=== PATIENT | male | born 1980 | race Caucasian/White ===

== ENCOUNTER 2021-04-12 07:32 | Emergency (ER) | payer SELFPAY ==
[2021-04-12] MEDS ORDERED: DEXAMETHASONE 10 MG/ML VIAL PO STA (08:11)
[2021-04-12] MEDS ORDERED: KETOROLAC 60 MG/2 ML VIAL IM STA (08:11)
[2021-04-12] MEDS ORDERED: CHERRY SYRUP 10 ML UDC PO ONE (08:11)
--- NOTE | 2021-04-12 08:14 | ED Physician Documentation ---
PD HPI BACK PAIN - Stated complaint Stated Complaint: BACK PX - Chief complaint Chief Complaint: Back Pain - History obtained from History obtained from: Patient - History of Present Illness Timing - onset: How many days ago (2) Timing - duration: Days (2) Timing - details: Abrupt onset, Still present Location: Lower Quality: Pain, Spasm, Sharp, Similar to prior episodes Associated symptoms: Fever. No: Weakness, Numbness, Incontinent of urine, Unable to urinate, Hematuria, Incontinent of stool Improves with: Rest Worsened by: Movement, Lifting, Twisting, Palpation Contributing factors: Other (working on car bent over and had sudden onset of pain) Similar symptoms before: No diagnosis Recently seen: Not recently seen - Additional information Additional information: Previously well 40-year-old [place] car 2 days ago he bent over in an odd position and had sudden severe pain in his lower back midline. He has had similar symptoms previously remembers it only lasting several days. He thinks this was maybe 2 years ago. He has not been ill recently and has no other specific medical conditions. He has not tried any medications for this has not tried any Tylenol or Advil. Review of Systems Constitutional: denies: Fever Eyes: denies: Decreased vision Ears: denies: Ear pain Nose: denies: Rhinorrhea / runny nose, Congestion Throat: denies: Sore throat Cardiac: denies: Chest pain / pressure Respiratory: denies: Dyspnea, Cough GI: denies: Abdominal Pain, Nausea, Constipation, Diarrhea : denies: Dysuria, Frequency Skin: denies: Rash Musculoskeletal: reports: Back pain. denies: Neck pain, Extremity pain Neurologic: denies: Generalized weakness, Focal weakness, Numbness, Difficulty speaking PD PAST MEDICAL HISTORY - Past Medical History Past Medical History: Yes Cardiovascular: None Respiratory: None Neuro: Headaches Endocrine/Autoimmune: None GI: None : None HEENT: None Psych: None Musculoskeletal: None Derm: None - Past Surgical History Past Surgical History: No - Present Medications Home Medications: Ambulatory Orders Medication Instructions Recorded Confirmed Cyclobenzaprine [Flexeril] 10 mg PO TID PRN #20 tablet 04/12/21 HYDROcod/ACETAM 5/325 [[place] 5/325] 1 - 2 tablet PO Q6H PRN #14 tablet 04/12/21 Meloxicam [Mobic] 1 tablet PO DAILY PRN #20 tab 04/12/21 - Allergies Allergies/Adverse Reactions: Allergies Allergy/AdvReac Type Severity Reaction Status Date / Time No Known Drug Allergies Allergy Verified 04/12/21 07:37 - Social History Does the pt smoke?: No Smoking Status: Never smoker PD ED PE NORMAL - Vitals Vital signs reviewed: Yes (Hypertensive) - General General: Alert and oriented X 3, No acute distress, Well developed/nourished, Other (40-year-old male standing in the room appears to be in 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 There is paraspinous muscle spasm bilaterally extending down to the buttocks.) - Derm Derm: Normal color, Warm and dry, No rash - Extremities Extremities: No deformity, No edema - Neuro Neuro: Alert and oriented X 3, fish fryer 2-12 intact, No motor deficit, No sensory deficit, Normal speech Eye Opening: Spontaneous Motor: Obeys Commands Verbal: Oriented GCS Score: 15 - Psych Psych: Normal mood, Normal affect Results - Vitals Vitals: Vital Signs - 24 hr 04/12/21 07:33 Temperature 36.5 C Heart Rate 98 Respiratory 18 Rate Blood Pressure 127/98 H O2 Saturation 97 PD MEDICAL DECISION MAKING - ED course Complexity details: considered differential, d/w patient ED course: Previously well 40-year-old male with acute lower lumbar back pain after odd positioning is administered dexamethasone and Toradol. We will place him on a short course of pain medication and muscle relaxant and provide some meloxicam. I have been instructed the patient to ice and stretch his back as well. He is expecting to have some improvement in 2 to 5-day range. Departure - Departure Disposition: 01 Home, Self Care Clinical Impression: Acute lumbar back pain Qualifiers: Back pain laterality: midline Sciatica presence: without sciatica Qualified Code(s): M54.50 - Low back pain, unspecified Condition: Stable Instructions: ED Low Back Pain Injury Follow-Up: [facility] [Provider Group] Prescriptions: Cyclobenzaprine [Flexeril] 10 mg PO TID PRN #20 tablet PRN Reason: Spasms Meloxicam [Mobic] 1 tablet PO DAILY PRN #20 tab PRN Reason: Pain HYDROcod/ACETAM 5/325 [[place] 5/325] 1 - 2 tablet PO Q6H PRN #14 tablet PRN Reason: Pain
[2021-04-12 08:42] VITALS: BP 124/65
== END 2021-04-12 08:42 | disposition home or self-care (01) ==
LOC: ED 07:32
DX: M54.50 Low back pain, unspecified (principal)
CPT/HCPCS: 96372; 99283; 99284; A9270